=== PATIENT | female | born 1975 | race Caucasian/White ===

== ENCOUNTER → 2016-11-14 | Outpatient (REF) | payer MEDICARE, MEDICAID ==
[~2016-11-14] MED LIST: /ONDA4TA PO; ADVIL PO; BACL10TA2; CEFA1TAB OR; HUMALOG KWIKPEN; HYDR25TA8; INSULIN NPH SC; KEFL500C OR; KLON0.5T OR; NICO21DI4 TD; PAXI20TA; PAXI40TA; PRENTAB74 PO; PRIL40CA OR; PROAAER IN; PROTPAK PO; PROZ20CA; REGULAR INSULIN SC; TRAZ150T OR; TRAZ50TA; TRAZ50TA OR; TRAZODONE PO; WELL100T2 OR; prozac PO
== END ==
LOC: M SMT 12:51
PROVIDERS: ATTEND Nurse Practitioner Women's Health
DX: R31.9 Hematuria, unspecified (principal)
CPT/HCPCS: 81001; 87086; 88108; G0463

== ENCOUNTER → 2017-02-07 | Day surgery (SDC) | payer MEDICARE, MEDICAID ==
[~2017-02-07] VITALS: Ht 157.5 cm; Wt 77.6 kg
[~2017-02-07] MED LIST changes: +ACET50TAOT PO; +ALBU17IN2 INH; +CIPROFLOXACIN 400 MG in APPROPRIATE DILUENT 1 EA IV ONE; +DOCQ100C; +DOXY-278 PO; +FLOM5CAP PO; +FLUO20CA8 PO; +HYDR12.55 PO; +KETAMINE HCL 200 MG/20 ML VIAL As Ordered ONE; +LAMOTRIGINE; +LIDOCAINE 2% INJ 100 MG/5 ML SDV (FOR ANES.) As Ordered ONE; +LISI-542 PO; +LR 1,000 ML IV SCH; +METOCLOPRAMIDE INJ 10MG/2ML VIAL (J2765) IV PRN; +MI-A80CH; +MICR10CA PO; +MIDAZOLAM INJ 2 MG/2 ML VIAL (J2250) As Ordered ONE; +ONDANSETRON 4MG/2ML VIAL (J2405) As Ordered ONE; +ONDANSETRON 4MG/2ML VIAL (J2405) IV PRN; +PANT40TA2 PO; +PERC5TAB6 PO; +PERCOCET 5MG/325MG TAB PO PRN; +PERCOCET PO; +PROPOFOL 200 MG/20 ML VIAL As Ordered ONE; +TRAM50TA2 PO; +TRUL10IN SC; +VYVA60CA PO; +fentaNYL 100 MCG/2 ML INJECTION (J3010) As Ordered ONE
--- NOTE | 2017-02-07 08:43 | REP ---
Clinical: Nephrolithiasis. Technique: Single supine view of the abdomen and pelvis. Comparison: 09/28/2013. Findings: No obvious urinary tract calcifications are appreciated. Bowel gas pattern is nonspecific. Evidence for prior tubal ligation and cholecystectomy. Skeletal structures are intact. Impression: No obvious urinary tract calcifications. Signed by Dylan Shea MD 02/07/2017 08:34 A
[2017-02-07 11:40] VITALS: BP 124/65
--- NOTE | 2017-02-08 10:53 | RO ---
DATE OF PROCEDURE: 02/07/2017 PREPROCEDURE DIAGNOSIS: Left kidney stone. POSTPROCEDURE DIAGNOSIS: Left kidney stone. PROCEDURE: Left extracorporal shockwave lithotripsy SURGEON: Dr. Evan Barajas. NITROGLYCERIN NEUTRALIZER: None. ANESTHESIA: Monitored anesthesia care (MAC) COMPLICATIONS: None. ESTIMATED BLOOD LOSS: N/A HISTORY OF PRESENT ILLNESS: A 6 mm left kidney stone about 6 mm in diameter causing pain. For this reason, she has consented for a left extracorporal shockwave lithotripsy. DESCRIPTION OF PROCEDURE: With the patient in the supine position under MAC anesthesia, after finding the stone with ultrasound x-ray, which was fairly easy. We gave a total of 2500 shockwave lithotripsies at a power of 1-20. The first 100 shockwave lithotripsy was done on a power of 1-5. The following 100 shockwave lithotripsy was done at a power of 5-10, and the following 2300 shockwave lithotripsy was done a at power of 10-20. The patient tolerated the procedure well. There were no complications during surgery. PLAN: The patient will go home with Flomax and pain medication. She will followup at [facility] [place] in about 2 weeks.
== END | disposition home or self-care (01) ==
LOC: M SDC 07:18
PROVIDERS: ATTEND Urology
DX: N20.0 Calculus of kidney (principal); I10 Essential (primary) hypertension; E10.9 Type 1 diabetes mellitus without complications; E78.00 Pure hypercholesterolemia, unspecified; M54.2 Cervicalgia; F41.9 Anxiety disorder, unspecified; F32.9 Major depressive disorder, single episode, unspecified; K21.9 Gastro-esophageal reflux disease without esophagitis; R51 Headache; R56.9 Unspecified convulsions; J45.909 Unspecified asthma, uncomplicated; J44.9 Chronic obstructive pulmonary disease, unspecified; F17.210 Nicotine dependence, cigarettes, uncomplicated; Z88.1 Allergy status to other antibiotic agents; Z88.6 Allergy status to analgesic agent; Z88.8 Allergy status to other drugs, medicaments and biological substances; Z91.013 Allergy to seafood; Z91.018 Allergy to other foods; Z79.899 Other long term (current) drug therapy; Z98.51 Tubal ligation status; Z87.81 Personal history of (healed) traumatic fracture
CPT/HCPCS: 50590; 74000; J0744; J2250; J2405; J3010

== ENCOUNTER → 2017-07-31 | Outpatient (CLI) | payer MEDICARE, MEDICAID ==
[~2017-07-31] MED LIST changes: -CIPROFLOXACIN 400 MG in APPROPRIATE DILUENT 1 EA IV ONE; -KETAMINE HCL 200 MG/20 ML VIAL As Ordered ONE; -LIDOCAINE 2% INJ 100 MG/5 ML SDV (FOR ANES.) As Ordered ONE; -LR 1,000 ML IV SCH; -METOCLOPRAMIDE INJ 10MG/2ML VIAL (J2765) IV PRN; -MIDAZOLAM INJ 2 MG/2 ML VIAL (J2250) As Ordered ONE; -ONDANSETRON 4MG/2ML VIAL (J2405) As Ordered ONE; -ONDANSETRON 4MG/2ML VIAL (J2405) IV PRN; +PERC5TAB12 PO; -PERC5TAB6 PO; -PERCOCET 5MG/325MG TAB PO PRN; -PROPOFOL 200 MG/20 ML VIAL As Ordered ONE; -fentaNYL 100 MCG/2 ML INJECTION (J3010) As Ordered ONE
--- NOTE | 2017-07-31 12:33 | REP ---
Clinical: Nephrolithiasis. Comparison: 02/07/2017. Technique: Single supine view of the abdomen and pelvis. Findings: A 2 mm calculus overlies the lower pole left kidney. Further evaluation of the urinary tract system is limited due to technique and bowel gas. Evidence for prior cholecystectomy and tubal ligation. Bowel gas pattern is nonspecific. Skeletal structures are intact. Impression: Possible 2 mm nonobstructing left renal calculus. Further evaluation of the urinary tract system is limited. Signed by Dylan Shea MD 07/31/2017 12:25 P
== END ==
LOC: M SMT 11:58
PROVIDERS: ATTEND Nurse Practitioner Women's Health
DX: N20.0 Calculus of kidney (principal)
CPT/HCPCS: 74000; 81001; 87086; G0463

== ENCOUNTER → 2017-07-31 | Outpatient (REF) | payer MEDICARE, MEDICAID | LOC: M SMT 13:11 | PROVIDERS: ATTEND Nurse Practitioner Women's Health | DX: N20.0 Calculus of kidney (principal) ==

== ENCOUNTER 2018-02-05 11:02 | Emergency (ER) | payer MEDICARE, MEDICAID ==
[2018-02-05 11:53] LABS: KETONE, URINE AUTO RFX NEGATIVE (NEGATIVE); LEUKOCYTE ESTERASE UR AUTO RFX NEGATIVE (NEGATIVE); NITRITE, URINE AUTO RFX NEGATIVE (NEGATIVE); RBC, URINE AUTO RFX TNTC /HPF (0-3); SPECIFIC GRAVITY UR AUTO RFX 1.015 (1.002-1.035); SQUAM EPITHELIAL CELL UR AURFX 2 /HPF (0-6); WBC, URINE AUTO RFX 2 /HPF (0-3)
[2018-02-05 14:22] LABS: CONTROL LINE UCG INT CTR LINE PRESENT; URINE PREG TEST NEGATIVE (NEGATIVE)
[2018-02-05 14:45] LABS: BASO # 0.1 10^3/uL (0.0-0.2); BASO % 0.7 % (0.0-1.0); EOS # 0.1 10^3/uL (0.0-0.50); HEMATOCRIT 45.6 % (36.0-47.0); HEMOGLOBIN 15.6 g/dl (12.0-15.5); IMMATURE GRANULOCYTE % 0.1 % (0-3.0); LYMPH # 2.8 10^3/uL (1.5-4.5); LYMPH % 30.6 % (24.0-44.0); MEAN CORPUSCULAR HEMOGLOBIN 30.6 pg (27.0-33.0); MEAN CORPUSCULAR HGB CONC 34.2 g/dl (32.0-36.5); MEAN CORPUSCULAR VOLUME 89.4 fl (80.0-96.0); MONO # 0.4 10^3/uL (0.0-0.8); MONO % 4.3 % (0.0-5.0); NEUTROPHILS # 5.7 10^3/uL (1.8-7.7); NEUTROPHILS % 63.3 % (36.0-66.0); PLATELET COUNT, AUTOMATED 286 10^3/uL (150-450); RED CELL DISTRIBUTION WIDTH 12.3 % (11.5-14.5)
[2018-02-05 15:12] LABS: ANION GAP 7 MEQ/L (8-16); BLOOD UREA NITROGEN 5 MG/DL (7-18); CALCIUM LEVEL 8.6 MG/DL (8.5-10.1); CARBON DIOXIDE LEVEL 26 MEQ/L (21-32); CHLORIDE LEVEL 107 MEQ/L (98-107); CREATININE FOR GFR 0.48 MG/DL (0.55-1.30); GLOMERULAR FILTRATION RATE > 60.0 (>58); GLUCOSE, FASTING 87 MG/DL (70-100); POTASSIUM SERUM 3.9 MEQ/L (3.5-5.1); SODIUM LEVEL 140 MEQ/L (136-145)
[2018-02-05] MEDS: KETOROLAC 30 MG/ML VIAL (J1885) IV (15:22)
[2018-02-05] MEDS: NS 1,000 ML IV (15:22)
[2018-02-05] MEDS: ONDANSETRON 4MG/2ML VIAL (J2405) IV (15:23)
[2018-02-05] MEDS: MORPHINE 2 MG/ML 1ML SYRINGE (J2270) IV (16:19)
[2018-02-05] MEDS: NORCO 5/325MG TABLET (BULK FOR ED) PO (16:53)
== END 2018-02-05 16:55 | disposition home or self-care (01) ==
LOC: M ED 11:02
DX: N28.1 Cyst of kidney, acquired (principal); Z79.899 Other long term (current) drug therapy; Z91.018 Allergy to other foods; Z88.0 Allergy status to penicillin; Z88.8 Allergy status to other drugs, medicaments and biological substances; Z91.013 Allergy to seafood; Z88.1 Allergy status to other antibiotic agents
CPT/HCPCS: J2405

== ENCOUNTER 2019-06-28 23:25 | Emergency (ER) | payer MEDICARE, MEDICAID ==
[~2019-06-28] VITALS: Ht 157.5 cm; Wt 95.5 kg
[~2019-06-28 23:25] MED LIST changes: -/ONDA4TA PO; +ACET500T15 PO; -ACET50TAOT PO; -DOCQ100C; +DOCQ100C5; -DOXY-278 PO; +DOXY-350 PO; +FLOM0.4C39 PO; -FLOM5CAP PO; +IBUP-1022 PO; +LAMO150T2; +LATU40TA; +NITR100C2 PO; +ONDA-1 PO; +OXYCODONE-ACE PO; -PANT40TA2 PO; +PANT40TA3 PO; +RANI150T; +ZOFR4TAB14 PO
[2019-06-28] MEDS ORDERED: FLUO1TAB3 (23:48)
[2019-06-29 00:21] VITALS: BP 161/82
== END 2019-06-29 00:24 | disposition home or self-care (01) ==
LOC: M ED 23:25
DX: F41.8 Other specified anxiety disorders (principal); Z63.0 Problems in relationship with spouse or partner; Z88.1 Allergy status to other antibiotic agents; Z88.0 Allergy status to penicillin; Z88.6 Allergy status to analgesic agent; Z91.013 Allergy to seafood; Z91.018 Allergy to other foods; F17.200 Nicotine dependence, unspecified, uncomplicated; R56.9 Unspecified convulsions; E78.00 Pure hypercholesterolemia, unspecified; I10 Essential (primary) hypertension; J44.9 Chronic obstructive pulmonary disease, unspecified; E11.9 Type 2 diabetes mellitus without complications; Z79.899 Other long term (current) drug therapy; Z87.442 Personal history of urinary calculi; K21.9 Gastro-esophageal reflux disease without esophagitis

== ENCOUNTER 2019-11-26 06:41 | Day surgery (SDC) | payer MEDICARE, MEDICAID ==
[~2019-11-26] VITALS: Ht 157.5 cm; Wt 101.6 kg
[~2019-11-26 06:41] MED LIST changes: +FLUO1TAB3 PO; +FLUO20CA20 PO; -FLUO20CA8 PO; -LAMO150T2; +LAMO150T3 PO; +ONDA-83 PO; +PROV108A INH; -RANI150T; +RANI150T PO; +VYVA20CA PO
[2019-11-26] MEDS ORDERED: LevoFLOXacin IV 500 MG in IV 1 EA IV ONE (07:00)
[2019-11-26] MEDS ORDERED: LR 1,000 ML IV ONE (07:00)
--- NOTE | 2019-11-26 07:55 | REP ---
Supine abdomen single AP view for renal calculi: Comparison is 07/31/2017. No renal, ureteral or bladder calculi are identified. 2 mm calculus projected over the left kidney on the previous study is not identified on the current examination. The left kidney is obscured by bowel gas. On the study today. There are abdominal right upper quadrant surgical clips, unchanged. There are tubal ligation clips in the pelvis, unchanged. The bowel gas pattern is normal. Impression: No renal, ureteral or bladder calculi are identified. Normal bowel gas pattern. Electronically Signed by Zeferino Perkins MD 11/26/2019 07:46 A
[2019-11-26 08:30] LABS: INR 1.01
[2019-11-26] MEDS ORDERED: LIDOCAINE 2% 5ML JELLY UROJET As Ordered ONE (09:17)
[2019-11-26] MEDS ORDERED: LIDOCAINE 2% INJ 100 MG/5 ML SDV (FOR ANES.) As Ordered ONE (10:15)
[2019-11-26] MEDS ORDERED: ONDANSETRON 4MG/2ML VIAL (J2405) As Ordered ONE (10:15)
[2019-11-26] MEDS ORDERED: KETAMINE HCL 200 MG/20 ML VIAL As Ordered ONE (10:15)
[2019-11-26] MEDS ORDERED: GLYCOPYRROLATE INJ 0.2 MG/ML 2 ML VIAL As Ordered ONE (10:15)
[2019-11-26] MEDS ORDERED: MIDAZOLAM INJ 2 MG/2 ML VIAL (J2250) As Ordered ONE (10:15)
[2019-11-26] MEDS ORDERED: propofoL 200 MG/20 ML VIAL As Ordered ONE (10:15)
[2019-11-26] MEDS ORDERED: fentaNYL 100 MCG/2 ML INJECTION (J3010) As Ordered ONE (10:15)
[2019-11-26] MEDS ORDERED: LABETALOL HCL 100 MG/20 ML VIAL As Ordered ONE (10:16)
[2019-11-26] MEDS ORDERED: oxyCODONE 5MG TAB PO PRN (11:15)
[2019-11-26] MEDS ORDERED: LR 1,000 ML IV SCH (11:15)
[2019-11-26] MEDS ORDERED: ONDANSETRON 4MG/2ML VIAL (J2405) IV PRN (11:15)
[2019-11-26 11:30] VITALS: BP 139/88
[2019-11-26] MEDS ORDERED: PERCOCET 5MG/325MG TAB PO PRN (11:30)
--- NOTE | 2019-11-26 16:47 | RO ---
DATE OF PROCEDURE: 11/26/2019 PREPROCEDURE DIAGNOSIS: Left kidney stone, gross hematuria. POSTPROCEDURE DIAGNOSIS: Left kidney stone, gross hematuria. PROCEDURE: Left extracorporeal shock wave lithotripsy, cystoscopy. SURGEON: Dr. Maninder Helms PROJECT ACCOUNT MANAGER: None ANESTHESIA: Monitored anesthesia care (MAC). OPERATIVE INDICATIONS: This is a 44-year-old female who was recently found to have an approximately 4 mm nonobstructing left kidney stone on CAT scan. This CAT scan was done because she had been having intermittent gross hematuria. She was brought to the operating room to treat the stone and to work up the gross hematuria with cystoscopy. DESCRIPTION OF PROCEDURE: The patient was brought to the operating room and MAC anesthesia was administered. Prophylactic antibiotics were infused. She was then placed in the supine position and then prepped and draped in the usual sterile fashion for flexible cystoscopy. At this point, a flexible cystoscope was inserted into the urethral meatus and advanced into the bladder. The bladder was thoroughly examined and no abnormalities were seen. Specifically, no bladder tumors or stones were seen inside the bladder. Bilateral ureteral orifices were orthotopic. The flexible cystoscope was retroflexed to observe the bladder opening, and there were no abnormalities. The cystoscope was then removed and then we prepared the patient for left-sided extracorporeal shock wave lithotripsy. Ultrasound was utilized to monitor stone position and fragment throughout the procedure. Shock waves were then delivered to the left-sided kidney stone, ungated. There were no arrhythmias. The stone did appear to fragment well. After 2500 shocks, the procedure was concluded. The patient was then awakened from anesthesia and transported to the recovery room in stable condition. Estimated blood loss: 0 mL. Complications: None. Specimens: None. Plan: The patient will followup in the clinic in a few weeks with imaging prior to assess for residual stone burden. Of note, no additional workup will be required for hematuria at this time unless she has increasingly worse hematuria. MTDD
== END 2019-11-26 11:36 | disposition home or self-care (01) ==
LOC: M SDC 06:41
PROVIDERS: ATTEND Urology
DX: N20.0 Calculus of kidney (principal); R31.0 Gross hematuria; E11.9 Type 2 diabetes mellitus without complications; F32.9 Major depressive disorder, single episode, unspecified; F60.3 Borderline personality disorder; K21.9 Gastro-esophageal reflux disease without esophagitis; E78.5 Hyperlipidemia, unspecified; R60.1 Generalized edema; J45.909 Unspecified asthma, uncomplicated; G40.909 Epilepsy, unspecified, not intractable, without status epilepticus; I10 Essential (primary) hypertension; Z87.442 Personal history of urinary calculi; F17.210 Nicotine dependence, cigarettes, uncomplicated; Z79.899 Other long term (current) drug therapy; Z79.84 Long term (current) use of oral hypoglycemic drugs; Z88.0 Allergy status to penicillin; Z88.6 Allergy status to analgesic agent; Z88.1 Allergy status to other antibiotic agents; Z91.018 Allergy to other foods; Z91.030 Bee allergy status; Z91.013 Allergy to seafood
CPT/HCPCS: 36415; 50590; 74018; 81025; 85610; J1956; J2250; J2405; J3010

== ENCOUNTER 2025-06-28 14:33 | Emergency (ER) | payer MEDICARE, MEDICAID ==
[~2025-06-28] VITALS: Ht 157.5 cm; Wt 86.5 kg
[~2025-06-28 14:33] MED LIST changes: +ALBU6.7H6 INH; -DOXY-350 PO; +DOXY-440 PO; -FLOM0.4C39 PO; +FLUO-96 PO; -FLUO20CA20 PO; -IBUP-1022 PO; +IBUP600T42 PO; -LATU40TA; +LATU40TA2; -LISI-542 PO; +LISI5TAB11 PO; +PANT40TA29 PO; -PANT40TA3 PO; -PROV108A INH; +TAMS-18 PO
[2025-06-28 15:16] LABS: PLATELET COUNT, AUTOMATED 308 10^3/uL (150-450)
[2025-06-28 15:41] LABS: AMPHETAMINES LEVEL URINE NEGATIVE (NEGATIVE); PHENCYCLIDINE URINE NEGATIVE (NEGATIVE)
[2025-06-28 15:42] LABS: BARBITURATES URINE NEGATIVE (NEGATIVE); BENZODIAZEPINES URINE NEGATIVE (NEGATIVE); COCAINE METABOLITE URINE NEGATIVE (NEGATIVE); METHADONE URINE NEGATIVE (NEGATIVE); OPIATES URINE NEGATIVE (NEGATIVE)
[2025-06-28 15:44] LABS: ETHYL ALCOHOL (ETHANOL) < 0.003 % (0.000-0.010)
[2025-06-28 15:45] LABS: ALT/SGPT 13 U/L (7.0-40); AST/SGOT 12 U/L (<34); CALCIUM LEVEL 9.2 MG/DL (8.5-10.1); CARBON DIOXIDE LEVEL 22 MMOL/L (20-31); CHLORIDE LEVEL 108 MMOL/L (98-107); CREATININE FOR GFR 0.45 MG/DL (0.55-1.30); GLOMERULAR FILTRATION RATE > 90.0 (>58); POTASSIUM SERUM 4.2 MMOL/L (3.5-5.1); SALICYLATE LEVEL < 3.0 MG/DL (<30); SODIUM LEVEL 141 MMOL/L (136-145)
[2025-06-28 15:46] LABS: CANNABINOIDS URINE POSITIVE (NEGATIVE)
[2025-06-28 17:21] VITALS: BP 152/83; TEMP 97.3; O2SAT 100
== END 2025-06-28 17:25 | disposition home or self-care (01) ==
LOC: M ED 14:33
DX: F43.0 Acute stress reaction (principal); E11.9 Type 2 diabetes mellitus without complications; F31.9 Bipolar disorder, unspecified; Z88.1 Allergy status to other antibiotic agents; Z91.030 Bee allergy status; Z88.8 Allergy status to other drugs, medicaments and biological substances; Z88.6 Allergy status to analgesic agent; Z91.013 Allergy to seafood; Z91.018 Allergy to other foods; Z79.899 Other long term (current) drug therapy

== ENCOUNTER 2025-08-04 12:44 | Emergency (ER) | payer MEDICARE, MEDICAID ==
[~2025-08-04] VITALS: Ht 157.5 cm; Wt 85.0 kg
[2025-08-04 13:28] LABS: PLATELET COUNT, AUTOMATED 299 10^3/uL (150-450)
[2025-08-04 13:44] LABS: ETHYL ALCOHOL (ETHANOL) 0.004 % (0.000-0.010)
[2025-08-04 13:46] LABS: ALT/SGPT 19 U/L (7.0-40); AST/SGOT 15 U/L (<34); CALCIUM LEVEL 9.2 MG/DL (8.5-10.1); CARBON DIOXIDE LEVEL 24 MMOL/L (20-31); CHLORIDE LEVEL 100 MMOL/L (98-107); CREATININE FOR GFR 0.40 MG/DL (0.55-1.30); GLOMERULAR FILTRATION RATE > 90.0 (>58); POTASSIUM SERUM 4.4 MMOL/L (3.5-5.1); SALICYLATE LEVEL < 3.0 MG/DL (<30); SODIUM LEVEL 137 MMOL/L (136-145)
[2025-08-04 13:55] LABS: AMPHETAMINES LEVEL URINE NEGATIVE (NEGATIVE); BARBITURATES URINE NEGATIVE (NEGATIVE); BENZODIAZEPINES URINE NEGATIVE (NEGATIVE); COCAINE METABOLITE URINE NEGATIVE (NEGATIVE); METHADONE URINE NEGATIVE (NEGATIVE); OPIATES URINE NEGATIVE (NEGATIVE); PHENCYCLIDINE URINE NEGATIVE (NEGATIVE)
[2025-08-04 14:05] LABS: CANNABINOIDS URINE POSITIVE (NEGATIVE)
[2025-08-04] MEDS ORDERED: LISI10TA22 PO (15:00)
[2025-08-04] MEDS ORDERED: JARD1TAB3 PO (15:00)
[2025-08-04] MEDS ORDERED: ROSU10TA90 PO (15:00)
[2025-08-04] MEDS ORDERED: ALBU8.5H INH (15:34)
[2025-08-04 17:12] VITALS: BP 145/82; TEMP 97.8; O2SAT 98
== END 2025-08-04 17:14 | disposition home or self-care (01) ==
LOC: M ED 12:44
DX: F43.0 Acute stress reaction (principal); E11.9 Type 2 diabetes mellitus without complications; F31.9 Bipolar disorder, unspecified; Z87.442 Personal history of urinary calculi; Z91.52 Personal history of nonsuicidal self-harm; Z79.899 Other long term (current) drug therapy; Z88.8 Allergy status to other drugs, medicaments and biological substances; Z88.0 Allergy status to penicillin; Z91.018 Allergy to other foods; Z91.013 Allergy to seafood; Z91.030 Bee allergy status